=== PATIENT | male | born 1945 | race Caucasian/White ===

== ENCOUNTER 2018-10-07 06:27 | Emergency (ER) | payer MEDICARE ==
[2018-10-07] MEDS ORDERED: Bacitracin Oint 1 GM U/D Packet TOP ONE (07:07)
[2018-10-07] MEDS ORDERED: Doxycycline 100 MG Cap PO ONE (07:07)
--- NOTE | 2018-10-07 07:14 | EDM.PDOC ---
ED HPI GENERAL MEDICAL PROBLEM - General Chief Complaint: Bite:Animal, Insect Stated Complaint: DEER TICK LEFT SIDE BACK Time Seen by Provider: 10/07/18 07:00 Source of Information: Reports: Patient, Family History Limitations: Reports: No Limitations - History of Present Illness INITIAL COMMENTS - FREE TEXT/NARRATIVE: 73-year-old male woke up this morning and showered when he noticed a small tick embedded into his left flank. No symptoms. Onset: Unknown/Unsure Location: Reports: Back Associated Symptoms: Reports: No Other Symptoms - Related Data Allergies Allergy/AdvReac Type Severity Reaction Status Date / Time No Known Allergies Allergy Verified 10/07/18 06:41 Home Meds: Home Meds Aspirin [Lo-Dose Aspirin EC] 1 tab PO DAILY 10/07/18 [History] Omeprazole 1 tab PO DAILY 10/07/18 [History] Pravastatin Sodium 1 tab PO DAILY 10/07/18 [History] Simvastatin 1 tab PO DAILY 10/07/18 [History] Past Medical History HEENT History: Reports: Hard of Hearing Cardiovascular History: Reports: High Cholesterol, Hypertension Genitourinary History: Reports: Renal Calculus Oncologic (Cancer) History: Reports: Basal Cell Carcinoma - Infectious Disease History Infectious Disease History: Reports: Chicken Pox, Measles - Past Surgical History GI Surgical History: Reports: Colonoscopy Musculoskeletal Surgical History: Reports: Knee Replacement Social & Family History - Family History Family Medical History: Noncontributory - Tobacco Use Smoking Status *Q: Never Smoker Second Hand Smoke Exposure: No - Caffeine Use Caffeine Use: Reports: Coffee - Recreational Drug Use Recreational Drug Use: No ED ROS GENERAL - Review of Systems Review Of Systems: See Below Constitutional: Denies: Fever, Chills Respiratory: Denies: Shortness of Breath GI/Abdominal: Denies: Nausea, Vomiting Skin: Reports: Erythema Neurological: Reports: No Symptoms ED EXAM, ANIMAL BITE - Physical Exam Exam: See Below Exam Limited By: No Limitations General Appearance: Alert, No Apparent Distress Respiratory/Chest: No Respiratory Distress Neurological: Alert, Oriented Skin Exam: Other (Exam is otherwise limited to the left flank area. There is an alive, embedded small tick in the left flank with a small amount of surrounding erythema. There appears to be a small amount of blood exchange and resulting tick engorgement.) Course - Vital Signs Last Recorded V/S: Last Vital Signs Temp 98.2 F 10/07/18 06:43 Pulse 58 L 10/07/18 06:43 Resp 16 10/07/18 06:43 BP 145/76 H 10/07/18 06:43 Pulse Ox 95 10/07/18 06:43 - Orders/Labs/Meds Meds: Medications Discontinued Medications Generic Name Dose Route Start Last Admin Trade Name Joann PRN Reason Stop Dose Admin Bacitracin 1 dose 10/07/18 07:07 10/07/18 07:13 Bacitracin Oint 1 Gm TOP 10/07/18 07:08 1 dose ONETIME ONE Administration Doxycycline Hyclate 200 mg 10/07/18 07:07 10/07/18 07:13 Vibramycin PO 10/07/18 07:08 200 mg ONETIME ONE Administration - Re-Assessments/Exams Free Text/Narrative Re-Assessment/Exam: 10/07/18 07:12 The tick was carefully pulled out with a tweezers at a 90 angle from the skin and removed in its entirety. A small amount of bacitracin was applied and a Band -Aid, and the patient given 1 oral dose of 200 mg doxycycline. He will keep the wound clean while healing and recheck at any time if symptoms such as fever or joint pains develop. Departure - Departure Time of Disposition: 07:19 Disposition: Home, Self-Care 01 Condition: Good Clinical Impression: Tick bite of left flank Qualifiers: Encounter type: initial encounter Qualified Code(s): S30.861A - Insect bite ( nonvenomous) of abdominal wall, initial encounter - Discharge Information Instructions: Tick Bite Information, Adult, [id number], Insect Bite, Adult, [id number] Referrals: Wallace Hogan MD [Primary Care Provider] - Forms: ED Department Discharge Care Plan Goals: Keep wound clean while healing, expect some redness but recheck if fever, joint pains or large area of rash over the next several weeks.
== END 2018-10-07 07:20 | disposition home or self-care (01) ==
LOC: JP.ED 06:27
DX: S30.861A Insect bite (nonvenomous) of abdominal wall, initial encounter (principal); I10 Essential (primary) hypertension; E78.00 Pure hypercholesterolemia, unspecified; Z79.82 Long term (current) use of aspirin; Z79.899 Other long term (current) drug therapy; W57.XXXA Bitten or stung by nonvenomous insect and other nonvenomous arthropods, initial encounter
CPT/HCPCS: 99282; A9270